=== PATIENT | male | born 2000 | race Caucasian/White ===

== ENCOUNTER 2021-09-14 12:08 | Emergency (ER) | payer OTHER ==
[2021-09-14] MEDS ORDERED: NORFLEX 100 MG100 MG PO (16:05)
[2021-09-14] MEDS ORDERED: IBUPROFEN600 MG PO (16:05)
== END 2021-09-14 16:15 | disposition home or self-care (01) ==
LOC: ER1 12:08
DX: S16.1XXA Strain of muscle, fascia and tendon at neck level, initial encounter (principal); S39.012A Strain of muscle, fascia and tendon of lower back, initial encounter; S29.012A Strain of muscle and tendon of back wall of thorax, initial encounter; V49.40XA Driver injured in collision with unspecified motor vehicles in traffic accident, initial encounter; Y92.410 Unspecified street and highway as the place of occurrence of the external cause
CPT/HCPCS: 72125; 72128; 72131; 73030; 96372; 99284; J1885